=== PATIENT | female | born 1970 | race Two or more races ===

== ENCOUNTER → 2017-08-28 | Emergency (ER) | payer OTHER ==
[~2017-08-28] VITALS: Ht 157.5 cm; Wt 61.7 kg
[~2017-08-28] MED LIST: ESOMEPRAZOLE MA40 MG PO; VENLAFAXINE H37.5 MG PO
== END | disposition home or self-care (01) ==
LOC: ER 15:33
DX: N39.0 Urinary tract infection, site not specified (principal)